=== PATIENT | male | born 1985 | race Caucasian/White ===

== ENCOUNTER → 2018-01-18 08:15 | Outpatient (CLI) | payer MEDICAID, SELFPAY ==
[2018-01-18 09:14] LABS: Mean Corp Hgb Conc 34.9 g/gl (32-36); Mean Corpuscular Hgb 30.7 pg (27.0-32.0); Mean Corpuscular Volume 87.9 fL (80-94); Mean Platelet Vol. 10.6 fl (6.2-12.0); Platelet Count 225 K/mm3 (150-450); RBC Distribution Width CV 12.9 % (11.6-14.6); RBC Distribution Width SD 40.9 fl (35.1-43.9); Red Blood Count 4.89 M/mm3 (4.6-6.2); Scan Indicated on CBC? Y/N NO
[2018-01-18 09:39] LABS: ALB/GLOB Ratio 1.2 RATIO (0.9-2.4); AST(SGOT) 14 U/L (15-37); Alanine Aminotransfer ALT/SGPT 21 U/L (16-61); Albumin, Serum 3.8 g/dL (3.2-5.0); Alkaline Phosphatase 56 U/L (45-117); Anion Gap 9 (5-15); BUN 12 mg/dL (7-18); BUN/Creat Ratio 17.1 RATIO (10-20); Calcium,Total 8.9 mg/dL (8.5-10.1); Chloride 104 mmol/L (98-107); EST Glomerular Filtration Rate 140 mL/min (>60); Est Glom Filt Rate - Afr Amer 169 mL/min (>60); Globulin 3.3 g/dL (2.2-4.2); Glucose 92 mg/dL (74-106); Potassium 4.5 mmol/L (3.5-5.1); Protein, Total 7.1 g/dL (6.4-8.2); Sodium Level 140 mmol/L (136-145)
[2018-01-18 09:40] LABS: Valproic Acid (Depakene) Level 58 ug/mL (50-100)
== END ==
PROVIDERS: Family Provider Family Medicine; PCP Family Medicine; Visit Provider Psychiatry & Neurology Child & Adolescent Psychiatry
DX: F84.0 Autistic disorder (principal); F41.9 Anxiety disorder, unspecified
CPT/HCPCS: 36415; 80053; 80164; 85027

== ENCOUNTER → 2018-06-30 16:31 | Outpatient (CLI) | payer MEDICAID, SELFPAY | PROVIDERS: Family Provider Family Medicine; PCP Family Medicine; Visit Provider Ophthalmology | DX: H10.31 Unspecified acute conjunctivitis, right eye (principal) | CPT/HCPCS: 87110; 87140 ==

== ENCOUNTER → 2019-03-14 09:35 | Outpatient (CLI) | payer MEDICAID, SELFPAY ==
[2019-03-14 10:11] LABS: Absolute Lymphocyte Count 2.43 X10^3/ul (0.83-4.51); Absolute Neutrophil Count 3.4 X10^3/uL (2.0-7.7); Basophil# 0.03 X10^3/uL; Basophil% 0.5 % (0-1); Eosinophil# 0.18 X10^3/uL; Eosinophils% 2.7 % (0-5); Hematocrit 43.9 % (40-54); Hemoglobin 15.4 g/dl (13.0-16.5); Lymphocyte # 2.43 X10^3/ul (4.0); Lymphocyte % 36.9 % (19-41); Mean Corp Hgb Conc 35.1 g/gl (32-36); Mean Corpuscular Hgb 30.1 pg (27.0-32.0); Mean Corpuscular Volume 85.9 fL (80-94); Monocyte# 0.56 X10^3/uL; Monocyte% 8.5 % (0-10); Neutrophil # 3.35 X10^3/uL (2.7-7.7); Neutrophil % 50.8 % (47-70); POSITIVE COUNT NO; POSITIVE DIFFERENTIAL NO; POSITIVE MORPHOLOGY NO; Platelet Count 189 K/mm3 (150-450); RBC Distribution Width CV 12.4 % (11.6-14.6); RBC Distribution Width SD 38.5 fl (35.1-43.9); Red Blood Count 5.11 M/mm3 (4.6-6.2); White Blood Count 6.6 K/mm3 (4.4-11.0)
[2019-03-14 10:40] LABS: Valproic Acid (Depakene) Level 69 ug/mL (50-100)
[2019-03-14 10:44] LABS: ALB/GLOB Ratio 1.2 RATIO (0.9-2.4); AST(SGOT) 14 U/L (15-37); Alanine Aminotransfer ALT/SGPT 21 U/L (16-61); Albumin, Serum 3.9 g/dL (3.2-5.0); Alkaline Phosphatase 53 U/L (45-117); Anion Gap 7 (5-15); BUN 11 mg/dL (7-18); BUN/Creat Ratio 14.9 RATIO (10-20); Calcium,Total 8.8 mg/dL (8.5-10.1); Chloride 108 mmol/L (98-107); Creatinine, Serum 0.74 mg/dL (0.70-1.30); EST Glomerular Filtration Rate 131 mL/min (>60); Est Glom Filt Rate - Afr Amer 159 mL/min (>60); Globulin 3.2 g/dL (2.2-4.2); Glucose 99 mg/dL (74-106); Potassium 4.3 mmol/L (3.5-5.1); Protein, Total 7.1 g/dL (6.4-8.2); Sodium Level 140 mmol/L (136-145)
== END ==
PROVIDERS: Family Provider Family Medicine; PCP Family Medicine; Referring Provider Registered Nurse; Visit Provider Registered Nurse
DX: F63.9 Impulse disorder, unspecified (principal); Z79.899 Other long term (current) drug therapy
CPT/HCPCS: 36415; 80053; 80164; 85025

== ENCOUNTER → 2019-08-08 08:31 | Outpatient (CLI) | payer MEDICAID, SELFPAY ==
[2019-08-08 09:21] LABS: Basophil# 0.05 X10^3/uL; Basophil% 0.6 % (0-1); Eosinophil# 0.26 X10^3/uL; Eosinophils% 3.3 % (0-5); Hemoglobin 15.8 g/dL (13.0-16.5); Lymphocyte % 34.4 % (19-41); Mean Corp Hgb Conc 34.3 g/dL (32-36); Mean Corpuscular Volume 87.3 fL (80-94); Mean Platelet Vol. 10.4 fl (6.2-12.0); Monocyte# 0.66 X10^3/uL; Monocyte% 8.4 % (0-10); NRBC Flagged by Analyzer 0 % (0-5); Neutrophil % 50.9 % (47-70); Platelet Count 206 K/mm3 (150-450); RBC Distribution Width CV 12.1 % (11.6-14.6); Red Blood Count 5.27 M/mm3 (4.6-6.2); White Blood Count 7.9 K/mm3 (4.4-11.0)
[2019-08-08 09:39] LABS: Valproic Acid (Depakene) Level 65 ug/mL (50-100)
[2019-08-08 09:42] LABS: ALB/GLOB Ratio 1.1 RATIO (0.9-2.4); AST(SGOT) 14 U/L (15-37); Alanine Aminotransfer ALT/SGPT 23 U/L (16-61); Albumin, Serum 3.7 g/dL (3.2-5.0); Alkaline Phosphatase 55 U/L (45-117); Anion Gap 9 (5-15); BUN 13 mg/dL (7-18); Chloride 108 mmol/L (98-107); Creatinine, Serum 0.72 mg/dL (0.70-1.30); EST Glomerular Filtration Rate 134 mL/min (>60); Est Glom Filt Rate - Afr Amer 162 mL/min (>60); Globulin 3.5 g/dL (2.2-4.2); Glucose 99 mg/dL (74-106); Potassium 4.2 mmol/L (3.5-5.1); Protein, Total 7.2 g/dL (6.4-8.2); Sodium Level 141 mmol/L (136-145)
== END ==
PROVIDERS: Family Provider Family Medicine; PCP Family Medicine; Referring Provider Registered Nurse; Visit Provider Registered Nurse
DX: Z79.899 Other long term (current) drug therapy (principal)
CPT/HCPCS: 36415; 80053; 80164; 85025

== ENCOUNTER → 2020-09-26 08:32 | Outpatient (CLI) | payer MEDICAID, SELFPAY ==
[2020-09-26 09:25] LABS: Absolute Lymphocyte Count 3.33 X10^3/uL (0.83-4.51); Absolute Neutrophil Count 3.2 X10^3/uL (2.0-7.7); Basophil# 0.04 X10^3/uL; Basophil% 0.5 % (0-1); Eosinophil# 0.33 X10^3/uL; Eosinophils% 4.3 % (0-5); Hematocrit 46.1 % (40-54); Hemoglobin 15.6 g/dL (13.0-16.5); Lymphocyte # 3.33 X10^3/ul (4.0); Lymphocyte % 43.9 % (19-41); Mean Corp Hgb Conc 33.8 g/dL (32-36); Mean Corpuscular Hgb 30.8 pg (27.0-32.0); Mean Corpuscular Volume 91.1 fL (80-94); Mean Platelet Vol. 10.7 fl (6.2-12.0); Monocyte# 0.63 X10^3/uL; Monocyte% 8.3 % (0-10); NRBC Flagged by Analyzer 0 % (0-5); Neutrophil # 3.15 X10^3/uL (2.7-7.7); Neutrophil % 41.6 % (47-70); Platelet Count 191 K/mm3 (150-450); RBC Distribution Width CV 12.1 % (11.6-14.6); RBC Distribution Width SD 40.4 fl (35.1-43.9); Red Blood Count 5.06 M/mm3 (4.6-6.2); White Blood Count 7.6 K/mm3 (4.4-11.0)
[2020-09-26 09:58] LABS: ALB/GLOB Ratio 1.2 RATIO (0.9-2.4); AST(SGOT) 19 U/L (15-37); Alanine Aminotransfer ALT/SGPT 26 U/L (16-61); Albumin, Serum 3.8 g/dL (3.2-5.0); Alkaline Phosphatase 53 U/L (45-117); Anion Gap 7 (5-15); BUN 13 mg/dL (7-18); BUN/Creat Ratio 14.8 RATIO (10-20); Calcium,Total 9.2 mg/dL (8.5-10.1); Chloride 108 mmol/L (98-107); Cholesterol 173 mg/dL (200); Creatinine, Serum 0.88 mg/dL (0.70-1.30); EST Glomerular Filtration Rate 106 mL/min (>60); Est Glom Filt Rate - Afr Amer 128 mL/min (>60); Globulin 3.1 g/dL (2.2-4.2); Glucose 101 mg/dL (74-106); High Density Lipoprotein 41 mg/dL; Potassium 4.3 mmol/L (3.5-5.1); Protein, Total 6.9 g/dL (6.4-8.2); Sodium Level 142 mmol/L (136-145); Triglycerides 222 mg/dL; Very Low Density Lipoprotein 44 mg/dL (5-40)
[2020-09-26 10:03] LABS: Valproic Acid (Depakene) Level 80 ug/mL (50-100)
== END ==
PROVIDERS: PCP Family Medicine; Referring Provider Registered Nurse; Visit Provider Registered Nurse
DX: Z79.899 Other long term (current) drug therapy (principal)
CPT/HCPCS: 36415; 80053; 80061; 80164; 85025

== ENCOUNTER → 2021-09-29 08:35 | Outpatient (CLI) | payer MEDICAID, SELFPAY ==
[2021-09-29 09:07] LABS: Absolute Lymphocyte Count 3.15 X10^3/uL (0.83-4.51); Absolute Neutrophil Count 2.4 X10^3/uL (2.0-7.7); Basophil# 0.03 X10^3/uL; Basophil% 0.5 % (0-1); Eosinophil# 0.28 X10^3/uL; Eosinophils% 4.4 % (0-5); Hematocrit 43.4 % (40-54); Lymphocyte # 3.15 X10^3/ul (0.83-4.51); Lymphocyte % 49.8 % (19-41); Mean Corp Hgb Conc 34.6 g/dL (32-36); Mean Corpuscular Hgb 31.1 pg (27.0-32.0); Mean Corpuscular Volume 89.9 fL (80-94); Mean Platelet Vol. 10.5 fl (6.2-12.0); Monocyte# 0.48 X10^3/uL; Monocyte% 7.6 % (0-10); NRBC Flagged by Analyzer 0 % (0-5); Neutrophil # 2.36 X10^3/uL (2.7-7.7); Neutrophil % 37.2 % (47-70); Platelet Count 194 K/mm3 (150-450); RBC Distribution Width CV 11.7 % (11.6-14.6); RBC Distribution Width SD 38.3 fl (35.1-43.9); Red Blood Count 4.83 M/mm3 (4.6-6.2); White Blood Count 6.3 K/mm3 (4.4-11.0)
[2021-09-29 09:31] LABS: ALB/GLOB Ratio 1.2 RATIO (0.9-2.4); AST(SGOT) 10 U/L (15-37); Alanine Aminotransfer ALT/SGPT 20 U/L (16-61); Albumin, Serum 3.8 g/dL (3.2-5.0); Alkaline Phosphatase 57 U/L (45-117); Anion Gap 8 (5-15); BUN 10 mg/dL (7-18); BUN/Creat Ratio 14.3 RATIO (10-20); Calcium,Total 9.1 mg/dL (8.5-10.1); Chloride 107 mmol/L (98-107); Cholesterol 170 mg/dL (200); EST Glomerular Filtration Rate 137 mL/min (>60); Est Glom Filt Rate - Afr Amer 166 mL/min (>60); Globulin 3.2 g/dL (2.2-4.2); Glucose 102 mg/dL (74-106); High Density Lipoprotein 44 mg/dL; Potassium 4.2 mmol/L (3.5-5.1); Sodium Level 139 mmol/L (136-145); Triglycerides 147 mg/dL; Valproic Acid (Depakene) Level 81 ug/mL (50-100); Very Low Density Lipoprotein 29 mg/dL (5-40)
== END ==
PROVIDERS: PCP Family Medicine; Referring Provider Registered Nurse; Visit Provider Registered Nurse
DX: F63.9 Impulse disorder, unspecified (principal); Z79.899 Other long term (current) drug therapy
CPT/HCPCS: 36415; 80053; 80061; 80164; 82140; 85025

== ENCOUNTER 2022-03-21 08:37 | Outpatient (CLI) | payer MEDICAID, SELFPAY ==
[2022-03-21 09:26] LABS: AST(SGOT) 14 U/L (15-37); Alanine Aminotransfer ALT/SGPT 28 U/L (16-61); Albumin, Serum 3.9 g/dL (3.2-5.0); Alkaline Phosphatase 45 U/L (45-117); Bilirubin, Direct 0.22 mg/dL (0.00-0.30); Protein, Total 6.9 g/dL (6.4-8.2)
== END 2022-03-21 23:59 | disposition home or self-care (01) ==
PROVIDERS: PCP Family Medicine; Referring Provider Registered Nurse; Visit Provider Registered Nurse
DX: F63.9 Impulse disorder, unspecified (principal); Z79.899 Other long term (current) drug therapy
CPT/HCPCS: 36415; 80076; 82140

== ENCOUNTER → 2023-02-25 | Outpatient (CLI) | payer MEDICAID, SELFPAY ==
[2023-02-25 09:25] LABS: Platelet Count 177 K/mm3 (150-450)
[2023-02-25 10:02] LABS: AST(SGOT) 18 U/L (15-37); Alanine Aminotransfer ALT/SGPT 38 U/L (16-61); Albumin, Serum 3.8 g/dL (3.2-5.0); Alkaline Phosphatase 44 U/L (45-117); Bilirubin, Direct 0.23 mg/dL (0.00-0.30); Cholesterol 190 mg/dL (200); Globulin 3.2 g/dL (2.2-4.2); High Density Lipoprotein 49 mg/dL; Triglycerides 147 mg/dL; Very Low Density Lipoprotein 29 mg/dL (5-40)
[2023-02-25 10:59] LABS: Valproic Acid (Depakene) Level 82 ug/mL (50-100)
== END | disposition home or self-care (01) ==
PROVIDERS: PCP Family Medicine; Referring Provider Registered Nurse; Visit Provider Registered Nurse
DX: F63.9 Impulse disorder, unspecified (principal); Z79.899 Other long term (current) drug therapy
CPT/HCPCS: 36415; 80061; 80076; 80164; 82140; 85049

== ENCOUNTER → 2024-01-14 | Outpatient (CLI) | payer MEDICAID, SELFPAY ==
[2024-01-14 08:34] LABS: Platelet Count 196 K/mm3 (150-450)
--- OUTSIDE RECORDS SUMMARY | 2024-01-14 08:37 | XMS RPT_ITS | CCD ---
Author Name Unknown Address [address] [place] [address] Organization [facility] Care Team Providers Care Insurance Solicitor Name Role Phone PROVIDER, UNKNOWN Attending Unavailable ELIEZER العلي Primary Care Unavailable PROVIDER, UNKNOWN Admitting Unavailable ELIEZER العلي Primary Care Unavailable ROBERT PRETTY Admitting Unavailable ROBERT PRETTY Attending Unavailable ROBERT PRETTY Referring Unavailable PROVIDER, UNKNOWN Admitting Unavailable ELIEZER العلي Primary Care Unavailable ROBERT PRETTY Referring Unavailable PROVIDER, UNKNOWN Attending Unavailable PROVIDER, UNKNOWN Attending Unavailable ELIEZER العلي Primary Care Unavailable PROVIDER, UNKNOWN Admitting Unavailable PROVIDER, UNKNOWN Attending Unavailable ELIEZER العلي Primary Care Unavailable PROVIDER, UNKNOWN Admitting Unavailable Allergies Allergy Classification Reported Allergen(s) Allergy Type Date of Onset Reaction(s) Facility (1 source) carBAMazepine; Translations: [TEGRETOL] Drug Allergy 09-28-2013 [facility] Repository Results Test Name Value Interpretation Reference Range Facil ity Encounters Encounter Date Encounter Type Care Provider Facility Start: 09-08-2021 End: 09-08-2021 ambulatory ELIEZER العلي Facility:[facility] Start: 09-07-2021 ambulatory UNKNOWN PROVIDER Facili ty:[facility] Start: 08-25-2021 End: 08-28-2021 ambulatory UNKNOWN PROVIDER Facility:[facility] Payers Date Payer Category Payer Medicaid [id number] 1985 Unknown [id number] 2.16. [id number] 1954 Unknown [id number] 2.16. [id number] 1954 Unknown [id number] 01.17. [id number] 1954 Unknown [id number] 2.16. [id number] 1954 Unknown [id number] 2.16. [id number] Clinical Note 09-08-2021 Note Date & Type Note Facility 09-08-2021 Note Surgical Attestation : I have reviewed the patient's History and Physical Examination. I have personally seen and evaluated the patient, repeating gardner portions. There is no significant interval change. Surgery is still indicated. Yes Consent reviewed and signed by patient/family: Yes Operative site verified and marked: site verified but not marked as not anatomically possible Brent Pratt DDS 09/08/2021 7:04 AM [facility] Clinical Note 09-07-2021 Note Date & Type Note Facility 09-07-2021 Note Patient identified b y PSE as a candidate for the [facility] FLU/COVID-19 testing. Patient presented in vehicle to designated testing area. Appropriate PPE donned. RN/MTA to vehicle. Verified patient using name and date of and/or photo ID. Patient label was verified in front of patient and placed on specimen tube. Patient instructed to lower face covering below the nose. Obtained specimen with sterile swab from a single nare. Placed swab in universal viral transport. Specimen was double bagged and transported to lab. PPE doffed. Patient tolerated procedure well. RN instructed that results will be relayed via telephone or via MyChart in 24-48hrs. If patient is being tested as part of PSE, patient will receive call for positive results only. Patient should proceed with predetermined surgical plan if no call is received. Patient verbalized understanding of these instructions. [facility] Clinical Note 08-25-2021 Note Date & Type Note Facility 08-25-2021 Note Presurgical Evaluati on Harry Crawford, [id number] 36 year old Male 08/25/2021 Height: Data Unavailable Weight: 88.5 kg BMI: (28.01) VITAL SIGNS: Vitals: 08/25/21 1403 BP: 114/74 Pulse: 121 Resp: 18 Temp: 97.6 ???F (36.4 ???C) ALLERGIES: Allergies Allergen Reactions * Tegretol HISTORY OF PRESENT ILLNESS: 36yoM here for PSE for dental procedure on 09/08/2021 PMH: cerebral palsy RECENT ILLNESS: Serious illness or hospitalization within the last six months. No STOP-BANG Row Name Office Visit from 08/25/2021 in [facility] Pre Surgical Evaluation History of sleep apnea? No Snoring No Tired/Fatigued No Observed Apnea No Pressure: Hypertension No BMI > 35 0 Age > 50 0 Neck circ > 40cm (15.75 ) No Gender male? 1 Score 1 EXERCISE CAPACITY: >10 mets SOCIAL HISTORY: Social History Tobacco Use * Smoking status: Never Smoker * Smokeless tobacco: Never Used Substance Use Topics * Alcohol use: Not on file * Drug use: Not on file has no history on file for drug use. MEDICAL HISTORY: Past Medical History: Diagnosis Date * Autism disorder * Cerebral palsy (HCC) * Impulse control disorder * Intellectual disability SURGICAL HISTORY: Past Surgical History: Procedure Laterality Date * DENTAL RESTORATIONS Bilateral 08/17/2016 Procedure: DENTAL RESTORATIONS; Surgeon: Leonard De Paz DDS; Location: [facility]; Service: Dental * DENTAL RESTORATIONS N/A 10/20/2018 Procedure: DENTAL RESTORATIONS; Surgeon: Gillian Frausto DDS; Location: [facility]; Service: Dental * hx of pe tubes * hx of several dental rehabs under anesthesia * hx of t AND a * UNLISTED PROCEDURE, DENTOALVEOLAR STRUCTURES 09/28/13 PROBLEM LIST: Patient Active Problem List: Delay in development [R62.50] Autism [F84.0] Cerebral palsy (HCC) [G80.9] Dental caries [K02.9] Chronic periodontal disease [K05.6] FAMILY HISTORY: Family History Problem Relation Age of Onset * Hyperthyroidism Father * Rheumatoid Arthritis Father * Other (hld) Father * Good health Mother ANESTHESIA REVIEW OF SYSTEMS: Eyes/ENT: Eye Glasses Teeth: Missing Teeth, s/p multiple extractions Pulmonary: Negative Cardio-vascular: Negative G.I./ Hepatic: Negative Renal/: Negative Neurological: Negative Gynecological: N/A Psychiatric: Negative Musculoskeletal: Negative Endocrine: Negative Hematologic: Negative Constitutional: Negative Skin: Negative PREVIOUS ANESTHETIC COMPLICATIONS: Anesthesia Complications No anesthesia history noted FAMILY HISTORY OF ANESTHETIC COMPLICATIONS: No PHYSICAL EXAM: Eyes: Normal ENT: Nares normal and Mucosa normal Pulmonary: Chest clear to auscultation bilaterally Cardiovascular: RRR with S1S2 and No murmurs, gallops, or rubs Abdomen: Soft and non-tender Extremities: No gross or obvious abnormalities Neurologic: awake, alert Psychiatric: Appropriate mood/affect Skin: No gross or obvious abnormalities on visible skin AIRWAY EXAM: Mallampati score: 1 TMD: Adequate Neck Extension/ Flexion: Adequate Mouth Opening: Adequate Dentition: Intact Micrognathia/Overbite: No PAIN ASSESSMENT: Severity: 0 Location: N/A LABORATORY DATA: Type AND Screen None CBC (last 3 years, up to 5 values) None Basic Metabolic Panel None Basic Metabolic Panel None PT/PTT/INR (last 3 years, up to 5 values) None Arterial Blood Gases None No result for BNP LFT's (last 3 years, up to 5 values) None TESTS REVIEWED: CXRay: No Chest x-ray found EKG: Last ECG Date: Not Found ECHO: Last Echocardiogram: none found going back to 12/27/2008 No results found for this basename: LVEF Stress test date: Last StressTest: none found going back to 12/27/2008 CURRENT MEDICATION LIST: Current Outpatient Medications Medication Sig Dispense Refill * ibuprofen (MOTRIN) 800 MG tablet Take 1 Tablet by mouth every 8 hours as needed for Pain. 30 Tablet 3 * divalproex (DEPAKOTE SPRINKLE) 125 MG CSDR capsule Take 5 Capsules by mouth 2 times daily. * Perphenazine 8 MG TABS Take 1 Tablet by mouth 3 times daily. * perphenazine 2 MG tablet Take 3 Tablets by mouth 2 times daily. * benztropine (COGENTIN) 0.5 MG tablet Take 0.5 mg by mouth 2 times daily. No current facility-administered medications for this visit. CURRENT MEDICATIONS: Aspirin: No NSAIDS: No Other Antiplatelet Medication: No Anticoagulants: No Steroids: No PATIENT MEDICATION INSTRUCTIONS: On the morning of your surgery please take only the following medications, with a small sip of water: * divalproex (DEPAKOTE SPRINKLE) 125 MG CSDR capsule * perphenazine 2 MG tablet * benztropine (COGENTIN) 0.5 MG tablet LABS, TESTS, CONSULTS ORDERED: No orders or meds were signed during this encounter Interviewer signature: Marcelo Schulz MD 3:06 PM 08/25/2021 [facility] Clinical Note 02-27-2021 Note Date & Type Note Facility 01-28-2021 Note Patient Outreach ([facility]) HARRY CRAWFORD ([id number]) 1985 M Date Time Provider Department 01/28/21 WEATHERS, VANE MURPHY During your visit today, we recorded the following information about you: Allergies As of Date: 01/28/2021 Noted Allergy Reaction TEGRETOL (CARBAMAZEPINE) 08/06/2006 Date Reviewed: 01/01/2020 Reviewed by: Sapphire Weston) MEGHAN Murguia - Fully Assessed Order(s):SARS-COVID VACCINE 1ST DOSE APPT [[id number]] Order #: [id number] FUTURE Prescriptions as of 01/28/2021 Sig: DIVALPROEX 125 MG CAPSULE,DEL* 5 caps po twice daily PERPHENAZINE 8 MG TABLET Take 1 tablet by mouth three * BENZTROPINE 0.5 MG TABLET Take 1 tablet by mouth twice * PERPHENAZINE 2 MG TABLET three tabs twice daily THERAPEUTIC MULTIVITAMIN TABL* Take one(1) tablet daily. Problem List As Of Date 01/28/2021 Noted Resolved Autism [F84.0] 11/23/2009 Mental Retardation [F79] 11/23/2009 CP (Cerebral Palsy) [G80.9] 11/23/2009 Encounter Status:Closed by Data Stream CBOT, NSS LabsUSER on 01/31/21 [facility] Summary Purpose Family History No Family History Records FoundNo Family History Records Found Advance Directives No Advanced Directives Records FoundNo Advanced Directives Records Found Additional Source Comments (unrecognized sect ion and content) No Status Records FoundNo Status Records Found INFORMATION SOURCE (unrecogn ized section and content) DATE CREATED AUTHOR AUTHOR'Yari CHOI 01/12/2022 [facility] FOR RECORDS PERTAINING TO PATIENTS WHO ARE OR HAVE BEEN ENROLLED IN A CHEMICAL DEPENDENCY/SUBSTANCEABUSE PROGRAM, SOME INFORMATION MAY BE OMITTED. This clinical summary was aggregated from multiple sources. Caution should be exercised in using it in the provision of clinical care. This summary normalizes information from multiple sources, and as a consequence, information in this document may materially change the coding, format and clinical context of patient data. In addition, data may be omitted in some cases. CLINICAL DECISIONS SHOULD BE BASED ON THE PRIMARY CLINICAL RECORDS. [facility] provides no warranty or guarantee of the accuracy or completeness of information in this document.
[2024-01-14 08:58] LABS: Valproic Acid (Depakene) Level 74 ug/mL (50-100)
[2024-01-14 09:01] LABS: AST(SGOT) 13 U/L (15-37); Alanine Aminotransfer ALT/SGPT 18 U/L (16-61); Albumin, Serum 3.7 g/dL (3.2-5.0); Alkaline Phosphatase 47 U/L (45-117); Bilirubin, Direct 0.25 mg/dL (0.00-0.30); Globulin 3.1 g/dL (2.2-4.2); Protein, Total 6.8 g/dL (6.4-8.2)
== END | disposition home or self-care (01) ==
LOC: LAB 08:10
PROVIDERS: PCP Family Medicine; Referring Provider Registered Nurse; Visit Provider Registered Nurse
DX: F63.9 Impulse disorder, unspecified (principal); Z79.899 Other long term (current) drug therapy
CPT/HCPCS: 36415; 80076; 80164; 82140; 85049